=== PATIENT | female | born 1940 | race Caucasian/White ===

== ENCOUNTER 2018-11-09 09:30 | Observation (INO) ==
--- NOTE | 2018-11-09 09:39 | Diag Imaging Result Doc PS360 ---
CT HEAD W/O CONTRAST - 11/09/2018 INDICATION: stroke like symptoms COMPARISON: None FINDINGS: Stable old lacunae in the right basal ganglia. There is some worsening in the deep cerebral white matter chronic microvascular disease. No intracranial mass or hemorrhage. The skull is intact. There is severe chronic sinusitis of both maxillary sinuses similar to prior. Other sinuses are relatively clear. IMPRESSION: 1. Worsening cerebral white matter chronic microvascular disease. 2. Stable severe chronic sinusitis of the maxillary sinuses. This exam was performed using automated exposure control, adjustment of mA or kV according to patient size, and/or use of iterative reconstruction technique Electronically signed by Faizan Horan 11/09/2018 9:37 AM
--- NOTE | 2018-11-09 09:48 | EKG Report ---
Test Performed on : 11/09/2018 09:34:48 AM Test Reason : ER Blood Pressure : / mmHG Vent. Rate : 057 BPM Atrial Rate : 057 BPM P-R Int : 206 ms QRS Dur : 144 ms QT Int : 480 ms P-R-T Axes : 056 -05 097 degrees QTc Int : 467 ms Sinus bradycardia. Left bundle branch block Abnormal ECG When compared with ECG of 08-JAN-2015 14:25, Left bundle branch block is now present Unconfirmed Result
[2018-11-09 10:20] LABS: BASO# 0.02 X1000 (0.0-0.2); BASO% 0.2 % (0.0-0.8); EOS# 0.26 X1000 (0.0-0.7); HEMATOCRIT 37.7 % (37.0-47.0); HEMOGLOBIN 11.9 g/dL (12.0-16.0); IMM GRAN# 0.01 X1000 (0.0-0.04); IMM GRAN% 0.1 % (0.0-0.5); LYMPH# 2.86 X1000 (1.2-3.4); MCH 29.4 PG (27-31); MCHC 31.6 g/dL (33-37); MCV 93.1 FL (81-99); MONO# 1.08 X1000 (0.11-0.59); MONO% 12.5 % (1.7-9.3); NEUT# 4.43 X1000 (1.4-6.5); NEUT% 51.2 % (42.2-75.2); PLT 239 X1000 (130-400); RBC 4.05 XMIL (4.2-5.4); RDW 13.5 % (11.5-14.5); WBC 8.66 X1000 (4.8-10.8)
[2018-11-09 10:21] LABS: INR 0.98; PROTIME 13.5 Seconds (11.0-16.0)
[2018-11-09 10:22] LABS: PTT 28.5 Seconds (22.3-41.8)
[2018-11-09 10:30] LABS: ALBUMIN 4.3 g/dL (3.5-5.0); CALCIUM 8.7 mg/dL (8.8-10.2); CREATININE 1.7 mg/dL (0.5-0.9); POTASSIUM 4.7 mmol/L (3.5-5.1); TOTAL BILIRUBIN 0.4 mg/dL (0.20-1.00); TOTAL PROTEIN 6.9 g/dL (6.3-8.3)
--- NOTE | 2018-11-09 10:58 | Diag Imaging Result Doc PS360 ---
CHEST-PORTABLE - 11/09/2018 INDICATION: stroke like s/s COMPARISON: 01/08/2015 FINDINGS: The lungs are normally expanded and clear. Heart size and mediastinal contours are normal. No pneumothorax or pleural effusion. IMPRESSION: Negative exam. Electronically signed by Faizan Horan 11/09/2018 10:55 AM
--- NOTE | 2018-11-09 12:22 | PROVIDER DOCUMENTATION ---
This chart was entered by Vijaya Wilson Scribe, acting as scribe for Tigist Ma MD. HPI-Neurological Disorder - General Stated Complaint: Weakness Time Seen by Provider: 11/09/18 09:21 Source: patient Allergies/Adverse Reactions: Patient Allergies Allergy/AdvReac Type Severity Reaction Status Date / Time No Known Allergies Allergy Verified 11/09/18 09:30 Home Medications: Home Medication List Medication Instructions Recorded Confirmed Last Taken Type Clonazepam 1 mg PO HS 04/19/12 11/09/18 11/08/18 History Atorvastatin Calcium 1 tab PO DAILY 11/09/18 11/09/18 11/08/18 History Lisinopril 1 tab PO BID 11/09/18 11/09/18 11/08/18 History Nifedipine [Nifedipine ER] 60 mg PO DAILY 11/09/18 11/09/18 11/08/18 17:00 History Nifedipine [Nifedipine ER] 90 mg PO DAILY 11/09/18 11/09/18 11/08/18 17:00 History - History of Present Illness-Neuro Nature of Presenting Problem: Patient is a 78 year old female who presents to the ED via EMS with left side weakness. States waking up about 2 hours prior to arrival with increased weakness to left side. 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 Report having headache, shortness of breath and abdominal pain prior to the increase in left side weakness this morning. Patient states symptoms have improved. Headache Location: reports: global Severity: reports: mild Onset/Duration: reports: 1-3 hours ago (2 hours ago) Timing: reports: improving Context: reports: facial droop (left), other (left side weakness (arm and leg)) Character of Altered Mental Status: reports: N/A Any recent trauma/injury?: reports: none Character of Deficits: reports: new weakness New weakness or altered sensation location:: reports: LUE, LLE, left facial Cognitive Baseline: alert, oriented x3 Gait Baseline: walks without assistance Associated Symptoms: reports: headache, other (abdominal pain and shortness of breath.) Similar Symptoms Previously?: No Recently seen or treated by another doctor?: No Review of Systems - Adult - REVIEW OF SYSTEMS - ADULT Constitutional: reports: no symptoms reported. denies: chills, fever, fatique Eyes: reports: no symptoms reported Ears, Nose, Mouth & Throat: reports: no symptoms reported Cardiovascular: reports: no symptoms reported Respiratory: reports: see HPI, shortness of breath. denies: cough, wheezing Gastrointestinal: reports: see HPI, abdominal pain. denies: nausea, vomiting Genitourinary: reports: no symptoms reported Musculoskeletal: reports: no symptoms reported Integumentary: reports: no symptoms reported Neurological: reports: see HPI, headache/migraines (BISHOP), other (left facial droop and weakness to left arm and left leg.). denies: dizziness/vertigo, seizure, syncope Psychiatric: reports: no symptoms reported Endocrine: reports: no symptoms reported Hematologic/Lymphatic: reports: no symptoms reported Allergic/Immunologic: reports: no symptoms reported All Other Systems: Reviewed and Negative Past History - Adult - PAST MEDICAL HISTORY-ADULT Review of Records: reports: Old Records Reviewed, Social history reviewed & non- contributory. Major Childhood Illnesses: reports: denies history Cardiovascular: reports: HTN Respiratory: reports: denies history Gastrointestinal: reports: GERD Obstetrical/Gynecological: reports: denies history Genitourinary: reports: denies history Musculoskeletal: reports: denies history Neurological: reports: CVA Psychiatric: reports: depression Endocrine/Immune: reports: thyroid disorder Other Conditions: reports: denies history - PRIOR SURGERIES/PROCEDURES Surgical/Procedure History: reports: reviewed, not pertinent - IMMUNIZATION STATUS Childhood Immunizations: See Nurse Assessment Flu Vaccine: See Nurse Assessment - FAMILY HISTORY Family History: reviewed, not pertinent - SOCIAL HISTORY Smoking: denies Substance Use: denies Living Situation: family Physical Exam- Neurological - Physical Exam-Neuro Initial Vital Signs Reviewed: Yes General Appearance: alert, no apparent distress. negative: lethargic Eye Exam: bilateral eye: normal inspection, PERRL, EOMI HENMT: normocephalic/atraumatic, moist mucous membranes. negative: angioedema Head Injury: no evidence of injury. negative: active bleeding, ecchymosis, lacerations Respiratory: chest non-tender, lungs clear, normal breath sounds. negative: respiratory distress, crackles, rales, increased rate Cardiovascular: normal peripheral pulses, regular rate, rhythm. negative: tachycardia Abdominal Exam: normal bowel sounds, non tender, soft. negative: guarding, rebound Extremity: normal inspection. 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 negative: abnormal speech Motor/Sensory: weak motor strength LUE, weak motor strength LLE. negative: sens ory deficit Neurologic: facial droop (left), motor weakness (LUE and LLE). negative: aphasia Integumentary: normal color, normal turgor, warm/dry. negative: diaphoresis, rash Psych/Mental Status: normal mood/affect, oriented x 3. negative: anxious - Glascow Coma Scale Best Eye Response: (4) open spontaneously Best Verbal Response: (5) oriented Best Motor Response: (6) obeys commands Progress - PLAN OF CARE/RESULTS Progress/Plan/Lab Results: Laboratory Results - last 24 hr 11/09/18 11/09/18 11/09/18 09:26 09: 09:26 WBC 8.66 RBC 4.05 L Hgb 11.9 L Hct 37.7 MCV 93.1 MCH 29.4 MCHC 31.6 L RDW Std Deviation 13.5 Plt Count 239 MPV 11.0 H Immature Gran % (Auto) 0.1 Neut % (Auto) 51.2 Lymph % (Auto) 33.0 [place] % (Auto) 12.5 H Eos % (Auto) 3.0 Baso % (Auto) 0.2 Immature Gran # (Auto) 0.01 Neut # (Auto) 4.43 Lymph # (Auto) 2.86 [place] # (Auto) 1.08 H Eos # (Auto) 0.26 Baso # (Auto) 0.02 PT INR PTT (Actin FS) Sodium 141 Potassium 4.7 Chloride 105 Carbon Dioxide 26 Anion Gap 10 BUN 28 H Creatinine 1.7 H Estimated GFR/1.73 m2 29 BUN/Creatinine Ratio 16 Glucose 95 POC Glucose Calculated Osmolality 287 Calcium 8.7 L Total Bilirubin 0.40 AST 15 ALT 11 Alkaline Phosphatase 54 Creatine Kinase 154 Troponin T Total Protein 6.9 Albumin 4.3 Globulin 3.0 Albumin/Globulin Ratio 2.0 TSH Free T4 Plasma/Serum Ethyl Alc 11/09/18 11/09/18 11/09/18 09:26 09:26 09:26 WBC RBC Hgb Hct MCV MCH MCHC RDW Std Deviation Plt Count MPV Immature Gran % (Auto) Neut % (Auto) Lymph % (Auto) [place] % (Auto) Eos % (Auto) Baso % (Auto) Immature Gran # (Auto) Neut # (Auto) Lymph # (Auto) [place] # (Auto) Eos # (Auto) Baso # (Auto) PT 13.5 INR 0.98 PTT (Actin FS) 28.5 Sodium Potassium Chloride Carbon Dioxide Anion Gap BUN Creatinine Estimated GFR/1.73 m2 BUN/Creatinine Ratio Glucose POC Glucose Calculated Osmolality Calcium Total Bilirubin AST ALT Alkaline Phosphatase Creatine Kinase Troponin T < 0.010 Total Protein Albumin Globulin Albumin/Globulin Ratio TSH 0.02 L Free T4 1.92 H Plasma/Serum Ethyl Alc 11/09/18 09:30 WBC RBC Hgb Hct MCV MCH MCHC RDW Std Deviation Plt Count MPV Immature Gran % (Auto) Neut % (Auto) Lymph % (Auto) [place] % (Auto) Eos % (Auto) Baso % (Auto) Immature Gran # (Auto) Neut # (Auto) Lymph # (Auto) [place] # (Auto) Eos # (Auto) Baso # (Auto) PT INR PTT (Actin FS) Sodium Potassium Chloride Carbon Dioxide Anion Gap BUN Creatinine Estimated GFR/1.73 m2 BUN/Creatinine Ratio Glucose POC Glucose 95 Calculated Osmolality Calcium Total Bilirubin AST ALT Alkaline Phosphatase Creatine Kinase Troponin T Total Protein Albumin Globulin Albumin/Globulin Ratio TSH Free T4 Plasma/Serum Ethyl Alc Orders Category Date Time Status Admit - [facility] Routine AdmDCTranf 11/09/18 15:53 Active Activity - Up with Assistance ORDERED Care 11/09/18 15:53 Active Apply Mechanical Device [QM] ORDERED Care 11/09/18 15:53 Active Cardiac Monitoring DIRECTED Care 11/09/18 10:05 Active Finger Stick Blood Sugar (ED) DIRECTED Care 11/09/18 10:05 Completed Intake and Output-Strict ORDERED Care 11/09/18 15:53 Active Oxygen Therapy- ED Nursing DIRECTED Care 11/09/18 10:05 Active Saline Loc NOW Care 11/09/18 10:05 Active Vital Signs Order Q 4-HR ASSESS Care 11/09/18 15:53 Active Z-Document. for Tele Applied ORDERED Care 11/09/18 15:53 Active Heart Healthy Diet Diet 11/09/18 15:53 Active CHEST-PORTABLE [RAD] Stat Exams 11/09/18 10:[address] HEAD W/O CONTRAST [CT] Stat Exams 11/09/18 09:04 Completed MRI BRAIN W/WO CONTRAST [MRI] Routine Exams 11/09/18 12:17 Ordered ALCOHOL BLOOD Stat Lab 11/09/18 09:26 Completed BASIC METABOLIC PANEL [CHEM] Routine Lab 11/10/18 05:35 Completed CBC WITH DIFF [HEME] Routine Lab 11/10/18 05:35 Completed CBC WITH ELECTRONIC DIFF [HEME] Stat Lab 11/09/18 09:26 Completed CK PROFILE [SP CHEM] Stat Lab 11/09/18 09:26 Completed COMPREHENSIVE METABOLIC PANEL [CHEM] Stat Lab 11/09/18 09:26 Completed FREE T4 Routine Lab 11/09/18 09:26 Completed PROTIME WITH INR [COAG] Stat Lab 11/09/18 09:26 Completed PTT [COAG] Stat Lab 11/09/18 09:26 Completed TROPONIN T Stat Lab 11/09/18 09:26 Completed TSH Routine Lab 11/09/18 09:26 Completed 0.9% Sodium Chloride Inj [Ns] 1,000 ml Med 11/09/18 13:15 Discontinued IV 75 mls/hr ATORVAstatin [Lipitor] Med 11/09/18 21:00 Active 20 mg PO HS Acetaminophen [Tylenol] Med 11/09/18 15:53 Active 650 mg PO Q6H PRN PRN Clonazepam [Klonopin] Med 11/09/18 21:00 Active 1 mg PO HS LISINOpril [Prinivil] Med 11/09/18 21:00 Active 20 mg PO BID Nifedipine E.r. [Adalat cc] Med 11/10/18 09:00 Active 90 mg PO DAILY Ondansetron [Zofran] Med 11/09/18 15:53 Active 4 mg IV Q4H PRN PRN Telemetry [OM.EQ] Routine Oth 11/09/18 15:53 Active EKG [EKG] Routine Ther 11/09/18 Draft Transfer/Admit Order [TRANSFER] Routine Transfer 11/09/18 13:05 Completed Result Diagrams: 11/10/18 05:35 11/10/18 05:35 - EKG 1 Time of EKG reading by physician:: 09:34 EKG Read and Signed by:: Tigist Ma EKG Interpretation (*Must complete 3 of following elements*): Abnormal Rate: 57 Rhythm: sinus bradycardia [place]: normal QRS: LBB Comments: abnormal ECG - XRAY 1 XRAY Study: Chest Impression: See EMR Report ( CHEST-PORTABLE - 11/09/2018 INDICATION: stroke like s/s COMPARISON: 01/08/2015 FINDINGS: The lungs are normally expanded and clear. Heart size and mediastinal contours are normal. No pneumothorax or pleural effusion. IMPRESSION: Negative exam. Electronically signed by Fazian Horan 11/09/2018 10:55 AM 11/09/18 1055 Interpreting Physician: Faizan Pagan MD Dictated Date/Time: 11/09/18 1054 cc: Tigist Ma MD;) - CT/MRI 1 CT Study: Head Impression: See EMR Report ( CT HEAD W/O CONTRAST - 11/09/2018 INDICATION: stroke like symptoms COMPARISON: None FINDINGS: Stable old lacunae in the right basal ganglia. There is some worsening in the deep cerebral white matter chronic microvascular disease. No intracranial mass or hemorrhage. The skull is intact. There is severe chronic sinusitis of both maxillary sinuses similar to prior. Other sinuses are relatively clear. IMPRESSION: 1. Worsening cerebral white matter chronic microvascular disease. 2. Stable severe chronic sinusitis of the maxillary sinuses. This exam was performed using automated exposure control, adjustment of mA or kV according to patient size, and/or use of iterative reconstruction technique Electronically signed by Faizan Horan 11/09/2018 9:37 AM 11/09/18 0937 Interpreting Physician: Faizan Horan MD Dictated Date/Time: 11/09/18 0920 cc: Tigist Ma MD;) - CONSULTS/PCP/HOSPITALIST Notification #1 *Consult/PCP/Hospitalist*: Dr. Vera Time Discussed: 12:20 Reason/Comments: Dr. Ma consulted with Dr. Vera about patient. Consult Disposition: Admit Departure - Departure Date of Disposition Decision: 11/09/18 Time of Disposition Decision: 12:20 DIAGNOSIS: Hypotension, Stroke-like symptoms Disposition: ADMITTED INPATIENT 09 Certified Medical Emergency: Emergent Condition: Critical - Critical Care Note This patient required my direct & personal management of CC.: No Total Time (mins): 31 Critical Care Statement: This patient required my direct personal management to treat or rule out processes, the absence of which, could potentiallly result in sudden, clinically significant life or limb threatening deterioration. Attestation - Physician/ WHITNEY Attestation Patient care was provided by Advanced Practice Provider:: No The physician spent face to face time with patient:: Yes Advanced Practice Provider documentation review:: Supervising physician onsite and consulted in the evaluation and care of this patient. The physician did have a face to face encounter with the patient. - NIH Stroke Scale NIH Type: Initial Evaluation Level of Consciousness: 0-Alert LOC Questions (ask month and age): 0-Answers Both Correctly LOC Commands (ask to open & close eyes;make a fist, let go): 0-Obeys Both Correctly Best Gaze (horizontal eye movement): 0-Normal Visual (use finger movement, counting or visual threat): 0-No Visual Loss Facial Palsy (show teeth or raise eyebrows & close eyes tght: 1-Minor Paralysis Motor Function-left arm: 1-Drift Motor Function-right arm: 0-Normal Motor Function-left le-Drift Motor Function-right le-Normal Limb Ataxia(gvnwno-ibsg-nzeycl, or heel to kohli): 0-No Ataxia Sensory(pin prick to face,arms,trunk,legs-compare side/side): 0-No Ataxia Best Language(name item/read sentence.Ex-Down to Earth): 0-No Aphasia Dysarthria(Pt read words or say words Ex.Mama,Tip-Top,Thanks: 0-Normal Articulation Extinction and Inattention: 0-Normal NIH Total Score: 3 This chart was documented by the indicated scribe, (Vijaya Wilson, Pawan) and accurately reflects the services I performed and decisions made by me, Tigist Ma MD, as attested by the provider's signature.
[2018-11-09] MEDS ORDERED: NS 1,000 ML IV SCH (13:15)
[2018-11-09 13:42] LABS: TSH 0.02 uIUmL (0.27-4.20)
[2018-11-09 13:43] LABS: FREE T4 1.92 ng/dL (0.93-1.70)
--- NOTE | 2018-11-09 15:02 | HISTORY AND PHYSICAL ---
PRIMARY CARE PHYSICIAN: Dr. Avinash Witt. CHIEF COMPLAINT: Left-sided weakness that began approximately 2 hours prior to arrival with a headache, shortness of breath and some abdominal pain. HISTORY OF PRESENTING ILLNESS: This is a 78-year-old female, who presented to [facility] ER with complaints of left-sided weakness, a headache, shortness of breath and abdominal pain that began this morning. She states she has had a previous CVA with left-sided weakness and feels that she is currently at her baseline with her left-sided weakness, and that it is not any worse than it has been, but she states also with the daughter at bedside that she had a recent medication change in her nifedipine from 60 mg to 90 mg, but the daughter states that initially the pharmacy did not have the 90 mg, so she was continuing the 60. They went and picked up the 90 mg and then yesterday afternoon she took a 60 mg and then last night she took a 90 mg by accident. She thought that the new medication was something for her stomach and not a change and an increase in her nifedipine. So, this certainly can be contributing to all of her complaints. Her heart rate was 58 when she arrived, her blood pressure was 176/78. Laboratory data was fairly unremarkable, except her BUN was 28 and creatinine of 1.7, and has had a normal kidney function in 2015 of 1.1. Also, her TSH was 0.02 with a free T4 of 1.92. She has a history of hypothyroidism, but with these numbers it certainly looks that she is either on too much medication or has been taking too much medication, so we are going to verify that dosage and back off of it just a little bit. We did a CT of the head that showed worsening cerebral white matter, chronic microvascular disease, and stable severe chronic sinusitis of the maxillary sinuses. So, she will be admitted for further evaluation and treatment. PAST MEDICAL HISTORY: CVA 15 years ago, degenerative joint disease, depression, hypothyroidism, hypertension and chronic pain. PAST SURGICAL HISTORY: Right and left knee repair. FAMILY HISTORY: Reviewed and noncontributory. SOCIAL HISTORY: She currently lives with her , who the daughter states does have some mild dementia as well, and denied any alcohol, tobacco, or illicit drug use. ALLERGIES: She has no known drug allergies. HOME MEDICATIONS: She takes atorvastatin 20 mg p.o. daily, clonazepam 1 mg p.o. at bedtime, lisinopril 20 mg p.o. b.i.d., nifedipine 60 mg p.o. daily will be held as that has been discontinued and we will continue her on her nifedipine 90 mg p.o. daily. The patient did not list her Synthroid, so will call the pharmacy and verify her Synthroid dosage and see what she was taken and will back off of that a little bit, as it certainly looks by her labs that she is taking too much. LABORATORY DATA: Showed a white blood cell count of 8.66, hemoglobin 11.9, hematocrit 37.7, platelets 239. PT and INR of 13.5 and 0.98. Sodium 141, potassium 4.7, chloride 105, CO2 26, BUN of 28 with a creatinine of 1.7, glucose 95. Cardiac enzyme was negative. TSH is 0.02 with a free T4 of 1.92. Serum alcohol level showed none detected. CT of the head showed worsening cerebral white matter, chronic microvascular disease, and a stable chronic sinusitis of the maxillary sinuses. X-RAYS: 1. Chest x-ray showed a negative exam. 2. EKG showed sinus bradycardia at 57. REVIEW OF SYSTEMS: She denied any fever, chills, blurred vision, dizziness. She did have a headache. She denied any chest pain, coughing, shortness of breath. She did have some abdominal pain, but that has resolved. No nausea, vomiting, diarrhea. She did report some weakness in her left upper and lower extremity. PHYSICAL EXAMINATION: VITAL SIGNS: On arrival she had a pulse of 58, respirations 16, blood pressure 176/78, satting 96% on room air. GENERAL: This is a 78-year-old female, who is lying in the bed. Answers questions appropriately. HENT: Normocephalic, atraumatic. Normal ENT inspection. Oropharynx and nares are clear. EYES: Pupils are equal, round, reactive to light and accommodation. Extraocular movements are intact. NECK: Normal inspection. Normal range of motion. LUNGS: Clear to auscultation bilaterally with equal lung expansion and chest wall movement. HEART: With regular rate and rhythm. No murmurs, rubs, or gallops. ABDOMEN: Soft, nontender, nondistended. Bowel sounds are present x4 quadrants. MUSCULOSKELETAL: She had 5/5 strength to her right side, 4/5 strength to her left. NEUROLOGICAL: The cranial nerves 2-12 appear grossly intact. She does have residual left-sided weakness to her upper and lower extremity. ASSESSMENT: 1. Transient ischemic attack versus cerebrovascular accident, and a known history of cerebrovascular accident with left-sided weakness. 2. Acute kidney injury. 3. Hypothyroidism, but labs revealing hyperthyroidism. 4. Hypertension. PLAN: She will be admitted to the medical unit. We are going to attempt to get an MRI of the brain with and without contrast. Place on normal saline at 75 mL an hour. Continue home medications. Again, I will place an order for nursing to verify the Synthroid dosage and see what that is, and then we are going to make some adjustments with that since it appears she is a little overmedicated. Again, we will stop the nifedipine 60 mg. We will continue the [address] SCDs for DVT prophylaxis. Recheck a CBC, BMP in the a.m. I think most of her symptoms are probably going to be from overtaking her blood pressure medication, and also possibly the levels of her thyroid also could be contributing to some her symptoms, so will evaluate that as well. Further orders after seen by attending. Dictated by JOSE Burton for Gómez Vera MD cc: JOSE Burton MD Chad McElroy, MD
[2018-11-09] MEDS ORDERED: TYLENOL PO PRN (15:53)
[2018-11-09] MEDS ORDERED: ZOFRAN IV PRN (15:53)
[2018-11-09] MEDS ORDERED: KLONOPIN PO SCH (21:00)
[2018-11-09] MEDS ORDERED: LIPITOR PO SCH (21:00)
[2018-11-09] MEDS: PRINIVIL PO SCH (22:04)
--- NOTE | 2018-11-10 04:30 | EKG Report ---
Test Performed on : 11/10/2018 03:58:05 AM Test Reason : CHEST PAIN, SHORTNESS OF BREATH Blood Pressure : / mmHG Vent. Rate : 055 BPM Atrial Rate : 055 BPM P-R Int : 214 ms QRS Dur : 146 ms QT Int : 484 ms P-R-T Axes : 053 -09 092 degrees QTc Int : 463 ms Sinus bradycardia. with 1st degree AV block. Left bundle branch block Abnormal ECG When compared with ECG of 09-NOV-2018 09:34, (Unconfirmed) No significant change was found Confirmed by Jignesh Shaw MD ([id number]) on 11/18/2018 11:47:03 AM
[2018-11-10 06:41] LABS: BASO# 0.02 X1000 (0.0-0.2); BASO% 0.3 % (0.0-0.8); EOS# 0.16 X1000 (0.0-0.7); EOS% 2.4 % (0.0-10.0); HEMATOCRIT 36.1 % (37.0-47.0); HEMOGLOBIN 11.1 g/dL (12.0-16.0); IMM GRAN# 0.01 X1000 (0.0-0.04); IMM GRAN% 0.2 % (0.0-0.5); LYMPH# 2.09 X1000 (1.2-3.4); LYMPH% 31.6 % (20.5-51.1); MCH 28.8 PG (27-31); MCHC 30.7 g/dL (33-37); MCV 93.5 FL (81-99); MONO# 0.69 X1000 (0.11-0.59); MONO% 10.4 % (1.7-9.3); MPV 10.9 FL (7.4-10.4); NEUT# 3.64 X1000 (1.4-6.5); NEUT% 55.1 % (42.2-75.2); PLT 220 X1000 (130-400); RBC 3.86 XMIL (4.2-5.4); RDW 13.2 % (11.5-14.5); WBC 6.61 X1000 (4.8-10.8)
[2018-11-10 07:04] LABS: CALCIUM 8.3 mg/dL (8.8-10.2); CREATININE 1.4 mg/dL (0.5-0.9); POTASSIUM 4.8 mmol/L (3.5-5.1)
[2018-11-10] MEDS ORDERED: ADALAT CC PO SCH (09:00)
[2018-11-10] MEDS: PRINIVIL PO SCH (09:15)
[2018-11-10 11:59] VITALS: BP 187/55
--- NOTE | 2018-11-10 12:13 | Diag Imaging Result Doc PS360 ---
EXAM: US SOFT TISSUE HEAD/NECK HISTORY: hyperthyroid TECHNIQUE: Routine. COMPARISON: None. FINDINGS: The thyroid gland is slightly below normal in size. No cysts or nodules are identified. Right lobe is 3.3 x 0.9 x 1.3 cm. The left lobe is 2.6 x 1.1 x 1.4 cm. IMPRESSION: Slightly below normal thyroid size. No cysts or masses. Electronically signed by Janis Granados 11/10/2018 12:10 PM
--- NOTE | 2018-11-10 19:22 | HISTORY AND PHYSICAL ---
ADDENDUM: Patient came in with episode of progressive weakness in the setting of an old stroke with some weakness on her left side. Apparently, her nifedipine dose has been increased, her blood pressure controlled, but instead of just taking the increased dose, she took both medications. She thought one medication had been given to her for her stomach, because I guess they were mailed to her. In any case, she will be observed. We attempted to get an MRI, but she refused because of anxiety. Overall, she has completely resolved and back to baseline, so likely this was just related to transient hypotension more than other process currently. We will continue to follow. cc: Gómez Vera MD
--- NOTE | 2018-11-10 22:29 | DISCHARGE SUMMARY ---
ADMISSION DATE: 11/09/2018 DISCHARGE DATE: 11/10/2018 PRIMARY CARE PHYSICIAN: Dr. Avinash Witt. ADMISSION DIAGNOSES: 1. Transient ischemic attack versus cerebrovascular accident and a known history of cerebrovascular accident with left-sided weakness. 2. Acute kidney injury. 3. Hypothyroidism with labs revealing hyperthyroidism. 4. Hypertension. DISCHARGE DIAGNOSES: 1. Over use of blood pressure medicine after a change was made and patient took both dosages. 2. Acute kidney injury improved. 3. Hypothyroidism with labs revealing hyperthyroidism. 4. Hypertension. SUMMARY OF FINDINGS: This is a 78-year-old female who presented with complaints of left-sided weakness, a headache, shortness of breath and abdominal pain that began on the morning of arrival. States she has had a previous CVA with left-sided weakness and feels that her baseline left-sided weakness has not changed. Her daughter is at the bedside and states that she had a recent medication change in her nifedipine from 60 mg to 90 mg and initially the pharmacy did not have the 90 mg so she was continuing the 60 then when they picked up the 90 the patient took both dosages during the day so this is certainly can be contributing to all of her complaints. Heart rate was 58 when she arrived, she did have a bump in her creatinine at 1.7. It had come down to 1.4 today. She is noted to have a TSH of 0.02 with a free T4 of 1.92. We have not been able to verify her thyroid dosage but she will certainly need to have some adjustment in that if she is on because she is probably over taking it or there is too much in her system at this time. We are also going to do an ultrasound soft tissue of the head and neck today due to the hyperthyroid state prior to her leaving and that will be followed up with by her primary care but it is felt after these tests are completed that we can safely discharge her home. DISCHARGE MEDICATIONS: Atorvastatin 20 mg p.o. daily, clonazepam 1 mg p.o. at bedtime, lisinopril 20 mg p.o. b.i.d., nifedipine 90 mg p.o. daily, again we are going to make an attempt to verify her Synthroid dosage and that will be reviewed by attending. FOLLOWUP: She will need to follow up with her primary care physician in the next 1 to 2 weeks and call the office for an appointment. TIME SPENT: 35 minutes. Dictated by JOSE Burton for Gómez Vera MD cc: MD Gómez Carrillo MD
--- NOTE | 2018-11-11 10:22 | DISCHARGE SUMMARY ---
ADMISSION DATE: 11/09/2018 DISCHARGE DATE: 11/10/2018 HOSPITAL COURSE: The patient came in with stroke-like symptoms. She has a history of stroke with left-sided weakness of arm and leg. Apparently this was exaggerated, but she had taken 150 mg of nifedipine and had decreased blood pressure. In any case, her labs showed hyperthyroidism, so this is iatrogenic. She is on 0.1 mg of Synthroid, and we will adjust that down. I do not think this necessarily is explaining her symptoms; I think she just kind of had too much on board. She had a little bit of renal insufficiency. I would recommend follow-up TFTs in 4 to 6 weeks. Continue her nifedipine. She will need a blood pressure check in about a week, that is per her PCP Dr. Witt, and make sure she follows up with him. cc: Gómez Vera MD
== END 2018-11-10 13:48 | disposition home or self-care (01) ==
LOC: P.ED 09:30 → INTOOBSV 15:24 → P.MEDSURG 15:24
PROVIDERS: ADMIT Internal Medicine